=== PATIENT | female | born 1995 | race Two or more races ===

== ENCOUNTER 2016-08-05 17:35 | Emergency (ER) | payer OTHER ==
[2016-08-05] MEDS ORDERED: HYDROcod/ACETAM 5/325 MG TABLET PO STA (18:21)
[2016-08-05] MEDS ORDERED: CLINDAMYCIN 150 MG CAPSULE PO STA (18:21)
[2016-08-05] MEDS ORDERED: ONDANSETRON ODT 4 MG TABLET TL STA (18:21)
[2016-08-05] MEDS ORDERED: CLINDAMYCIN 150 MG CAPSULE PO ONE (18:34)
[2016-08-05] MEDS ORDERED: HYDROcod/ACETAM 5/325 MG TABLET ONE (18:34)
[2016-08-05] MEDS ORDERED: ONDANSETRON ODT 4 MG TABLET ONE (18:35)
== END 2016-08-05 18:53 | disposition home or self-care (01) ==
DX: I88.9 Nonspecific lymphadenitis, unspecified (principal); R03.0 Elevated blood-pressure reading, without diagnosis of hypertension
CPT/HCPCS: 99283; A9270; Q0162

== ENCOUNTER 2017-05-15 14:30 | Emergency (ER) | payer OTHER ==
--- NOTE | 2017-05-15 15:55 | ED Physician Documentation ---
PD HPI FOCAL NEURO - Stated complaint Stated Complaint: RT SIDE PX - Chief complaint Chief Complaint: General - History obtained from History obtained from: Patient - History of Present Illness Timing - onset: Enter time (1044), Today Timing - duration: Hours Timing - details: Abrupt onset, Still present Severity of deficit: Moderate Weakness: Hand, Leg, Right Numbness: Arm, Hand, Leg, Right Associated symptoms: Headache, Nausea / vomiting. No: Fall, Head injury, Chest pain, Neck pain, Back pain, Fever Contributing factors: negative: Anticoagulated Baseline status: positive: A&OX3, ambulatory, indep Similar symptoms before: No diagnosis Recently seen: Not recently seen - Additional information Additional information: 22-year-old female with history of migraines has developed a headache today and she has developed numbness to the right side of her body. She has numbness in the upper and lower extremity and some weakness in the upper and lower extremity. Weakness is subtle but present. She does have a headache and nausea she has not vomited. She did not have an aura prior to the headache. She denies any diplopia. She has had this happen to her a number of times previously it is resolved spontaneously and she has not sought medical treatment for this when it was occurring.She states that she took a nap today and woke up several times feeling the numbness to her arm and heaviness to her arm and she is eventually come to the emergency department for evaluation Review of Systems Constitutional: reports: Fatigue. denies: Fever, Chills, Myalgias Eyes: reports: Decreased vision (now resolved but present last week) Ears: denies: Loss of hearing, Ear pain Nose: denies: Rhinorrhea / runny nose, Congestion Throat: denies: Sore throat Cardiac: denies: Chest pain / pressure, Palpitations Respiratory: denies: Dyspnea, Cough GI: reports: Nausea. denies: Abdominal Pain, Vomiting : denies: Dysuria, Frequency Skin: denies: Rash Musculoskeletal: denies: Neck pain, Back pain, Extremity pain, Extremity swelling Neurologic: reports: Focal weakness, Numbness. denies: Generalized weakness PD PAST MEDICAL HISTORY - Past Medical History Cardiovascular: None Respiratory: None Neuro: None Endocrine/Autoimmune: None GI: None HOSPITAL INSURANCE CLERK: None : Chronic bladder infection HEENT: None Psych: None Musculoskeletal: None Derm: None - Past Surgical History Past Surgical History: No - Present Medications Home Medications: Ambulatory Orders Medication Instructions Recorded Confirmed No Known Home Medications [No 05/15/17 05/15/17 Known Home Medications] - Allergies Allergies/Adverse Reactions: Allergies Allergy/AdvReac Type Severity Reaction Status Date / Time doxycycline Allergy Nausea Verified 06/05/15 18:09 - Social History Does the pt smoke?: No Smoking Status: Never smoker Does the pt drink ETOH?: No Does the pt have substance abuse?: No - Immunizations Immunizations are current?: Yes - POLST Patient has POLST: No PD ED PE NORMAL - Vitals Vital signs reviewed: Yes (hypertensive ) - General General: Alert and oriented X 3, No acute distress, Well developed/nourished - HEENT HEENT: Atraumatic, PERRL, EOMI, Ears normal, Moist mucous membranes, Pharynx benign, Dentition benign - Neck Neck: Supple, no meningeal sign, No bony TTP - Cardiac Cardiac: RRR, No murmur - Respiratory Respiratory: No respiratory distress, Clear bilaterally - Abdomen Abdomen: Soft, Non tender - Back Back: No CVA TTP, No spinal TTP - Derm Derm: Normal color, Warm and dry, No rash - Extremities Extremities: No deformity, No edema - Neuro Neuro: Alert and oriented X 3, end matcher 2-12 intact, Normal speech, Other (There is subtle weakness to the right refrigeration houseman and dorsiflexion of the right foot. There is a slight atalgic gait and she is not able to tip-toe on the right. ) - Psych Psych: Normal mood, Normal affect NIHSS - Time Time: 16:00 - Level of Consciousness Level of consciousness: (0) Alert, Keenly responsive LOC Questions: (0) Answers both Q's correct LOC Commands: (0) Performs both correctly - Gaze Best Gaze: (0) Normal - Visual Visual: (0) No loss - Facial Palsy Facial Palsy: (0) Normal, symmetrical movement - Motor Arms (both separate) Motor Arm (right): (0) No drift Motor Arm (left): (0) No drift - Motor Legs (both separate) Motor Leg (right): (0) No drift Motor Leg (left): (0) No drift - Limb Ataxia Limb Ataxia: (0) Absent - Sensory Sensory: (1) [id number]-fenakhhl loss - Best Language Best Language: (0) No aphasia - Dysarthria Dysarthria: (0) Normal - Extinction and Inattention (formally neg Extinction and inattention: (0) No abnormality - Total Score/Results Total Score/Result: 1 Results - Vitals Vitals: Vital Signs - 24 hr 05/15/17 14:40 Temperature 36.4 C L Heart Rate 84 Blood Pressure 132/94 H O2 Saturation 99 Oxygen O2 Source Room air PD MEDICAL DECISION MAKING - ED course Complexity details: reviewed old records, reviewed results, re-evaluated patient , considered differential, d/w patient ED course: 22-year-old female with a history of migraine headaches appears today to have a complicated migraine with right-sided weakness and numbness. She is given Toradol 60 mg IM and dexamethasone 10 mg orally and has improvement in her headache and resulting symptoms of numbness and weakness.I originally ordered a regimen of multiple medications for migraine for this patient and these were refused by the patient and turned out to be unnecessary. 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
[2017-05-15] MEDS ORDERED: KETOROLAC 30 MG/ML VIAL ONE (16:13)
[2017-05-15] MEDS ORDERED: SODIUM CHLORIDE FLUSH 0.9% 10 ML SYRINGE IVP ONE (16:13)
[2017-05-15] MEDS ORDERED: DEXAMETHASONE 10 MG/ML VIAL ONE (16:13)
[2017-05-15] MEDS ORDERED: diphenhydrAMINE INJ 50 MG/ML VIAL ONE (16:13)
[2017-05-15] MEDS ORDERED: PROCHLORPERAZINE 10 MG/2 ML VIAL ONE (16:13)
[2017-05-15] MEDS: PROCHLORPERAZINE 10 MG/2 ML VIAL IVP STA (16:25)
[2017-05-15] MEDS: SODIUM CHLORIDE 0.9% 1,000 ML IV ONE (16:26)
[2017-05-15] MEDS: diphenhydrAMINE INJ 50 MG/ML VIAL IVP STA (16:26)
[2017-05-15] MEDS: KETOROLAC 60 MG/2 ML VIAL IVP STA (16:26)
[2017-05-15] MEDS ORDERED: KETOROLAC 60 MG/2 ML VIAL ONE (16:26)
[2017-05-15] MEDS: DEXAMETHASONE 10 MG/ML VIAL IVP STA (16:26)
[2017-05-15] MEDS ORDERED: CHERRY SYRUP 10 ML UDC PO ONE (16:27)
[2017-05-15] MEDS: KETOROLAC 60 MG/2 ML VIAL IM STA (16:29)
[2017-05-15] MEDS: DEXAMETHASONE 10 MG/ML VIAL PO STA (16:33)
[2017-05-15 17:07] VITALS: BP 127/83
== END 2017-05-15 17:14 | disposition home or self-care (01) ==
LOC: ED 14:30
DX: G43.401 Hemiplegic migraine, not intractable, with status migrainosus (principal)
CPT/HCPCS: 96372; 99282; 99283; A9270; 80053; 83690; 85025

== ENCOUNTER 2017-10-06 20:58 | Emergency (ER) | payer OTHER ==
[2017-10-06 21:59] LABS: HCG UR QUAL NEGATIVE
--- NOTE | 2017-10-06 22:30 | ED Physician Documentation ---
PD HPI CHEST PAIN - Stated complaint Stated Complaint: CHEST PX/SOA - Chief complaint Chief Complaint: General - History obtained from History obtained from: Patient - History of Present Illness Timing - onset: Yesterday Timing - onset during: Rest Timing - details: Gradual onset, Still present Quality: Aching, Sharp Location: Other (left breast) Worsened by: Movement, Palpation Associated symptoms: Shortness of air. No: Diaphoresis, Nausea, Vomiting, Feeling faint / dizzy Similar symptoms before: Has not had sx before Recently seen: Not recently seen - Additional information Additional information: patient is a 22 year old female who is presenting to the emergency department for left breast pain. Patient states that it has been going on for the last few days. Patient states that it is sharp in nature and goes from her areola up towards her left sternal region. Patient states that she is not breast feeding and denies any trauma. Review of Systems Constitutional: denies: Fever, Chills Eyes: reports: Reviewed and negative Ears: reports: Reviewed and negative Nose: reports: Reviewed and negative Throat: reports: Reviewed and negative Cardiac: reports: Chest pain / pressure. denies: Palpitations, Pedal edema Respiratory: denies: Dyspnea, Cough, Wheezing GI: denies: Nausea, Vomiting : reports: Reviewed and negative Skin: reports: Reviewed and negative Musculoskeletal: denies: Extremity pain Neurologic: denies: Generalized weakness, Focal weakness, Numbness Psychiatric: reports: Reviewed and negative Endocrine: reports: Reviewed and negative Immunocompromised: denies: Immunocompromised PD PAST MEDICAL HISTORY - Past Medical History Cardiovascular: None Respiratory: None Neuro: None Endocrine/Autoimmune: None GI: None SPECIALIST MANAGERS: None : Chronic bladder infection HEENT: None Psych: None Musculoskeletal: None Derm: None - Past Surgical History Past Surgical History: No - Present Medications Home Medications: Ambulatory Orders Medication Instructions Recorded Confirmed No Known Home Medications [No 05/15/17 05/15/17 Known Home Medications] - Allergies Allergies/Adverse Reactions: Allergies Allergy/AdvReac Type Severity Reaction Status Date / Time doxycycline Allergy Nausea Verified 10/06/17 21:06 - Social History Does the pt smoke?: No Smoking Status: Never smoker Does the pt drink ETOH?: No Does the pt have substance abuse?: No - Immunizations Immunizations are current?: Yes - POLST Patient has POLST: No PD ED PE NORMAL - Vitals Vital signs reviewed: Yes - General General: Alert and oriented X 3, No acute distress - HEENT HEENT: Atraumatic, PERRL - Neck Neck: Supple, no meningeal sign - Cardiac Cardiac: RRR, No murmur - Respiratory Respiratory: No respiratory distress - Abdomen Abdomen: Soft, Non tender, Non distended - Derm Derm: Normal color, Warm and dry, No rash - Extremities Extremities: No deformity, No calf tenderness / cord - Neuro Neuro: Alert and oriented X 3, No motor deficit, No sensory deficit, Normal speech Eye Opening: Spontaneous Motor: Obeys Commands Verbal: Oriented GCS Score: 15 PD ED PE EXPANDED - General General: Alert, Anxious - Cardiac Cardiac: Other (left breast tenderness to palpation, no erythema or discharge, no masses appreciated. ), Chest wall TTP Results - Vitals Vitals: Vital Signs - 24 hr 10/06/17 10/06/17 21:03 22:34 Temperature 36.2 C L Heart Rate 95 66 Respiratory 18 16 Rate Blood Pressure 133/91 H 117/68 O2 Saturation 98 95 Oxygen O2 Source Room air - EKG (time done) 2107 Rate: Rate (enter#) (78) Rhythm: NSR Orestes: Normal Intervals: Normal NM QRS: Normal Ischemia: Normal ST segments Compare to prior EKG: Old EKG unavailable - Labs Labs: Laboratory Tests 10/06/17 21:50 Ur Specific Mason >=1.030 H Urine HCG, Qual NEGATIVE PD MEDICAL DECISION MAKING - ED course Complexity details: reviewed old records, reviewed results, re-evaluated patient , considered differential, d/w patient ED course: Patient was seen and examined at bedside. ekg was performed and was within normal limits. Patient's physical revealed that all of the pain was in the breast tissue and sternal region. Patient's symptoms were unlikely cardiac or pulmonary in nature. Patient was not . Patient required no further work up and was stable for discharge with outpatient follow up. Departure - Departure Disposition: 01 Home, Self Care Clinical Impression: Breast pain in female Condition: Good Instructions: ED Strain Chest Wall Follow-Up: JESSICA CEBALLOS [Primary Care Provider] - As Needed Comments: Your diagnostic today were within normal limits. Your pain is unlikely cardiac in nature. You can take motrin or tylenol as needed for pain. You should follow up with your doctor if your symptoms persist. You may return to the emergency department at any time for new, worsening or uncontrollable symptoms. Discharge Date/Time: 10/06/17 22:34
[2017-10-06 22:34] VITALS: BP 117/68
== END 2017-10-06 22:34 | disposition home or self-care (01) ==
LOC: ED 20:58
DX: N64.4 Mastodynia (principal)
CPT/HCPCS: 81025; 93005; 99283